=== PATIENT | female | born 1970 | race Two or more races ===

== ENCOUNTER 2017-05-04 12:24 | Outpatient (CLI) | payer OTHER | END 2017-05-04 15:25 | disposition home or self-care (01) | LOC: RAD 501 12:24 | DX: M25.572 Pain in left ankle and joints of left foot (principal) ==

== ENCOUNTER 2017-05-11 11:19 | Outpatient (CLI) | payer OTHER | END 2017-05-11 11:27 | disposition home or self-care (01) | LOC: RAD 501 11:19 | DX: M25.572 Pain in left ankle and joints of left foot (principal); S90.02XA Contusion of left ankle, initial encounter ==

== ENCOUNTER 2017-06-15 09:19 | Outpatient (CLI) | payer OTHER | END 2017-06-15 16:52 | disposition home or self-care (01) | LOC: RAD 501 09:19 | DX: S82.65XA Nondisplaced fracture of lateral malleolus of left fibula, initial encounter for closed fracture (principal) ==

== ENCOUNTER 2018-02-17 09:52 | Outpatient (CLI) | payer OTHER | END 2018-02-17 10:01 | disposition home or self-care (01) | LOC: RAD 09:52 | DX: M54.5 Low back pain (principal) ==

== ENCOUNTER → 2023-02-22 | Outpatient (CLI) | payer OTHER | END | disposition home or self-care (01) | LOC: SONOGRAMA 12:23 | PROVIDERS: ATTEND Family Medicine | DX: E04.8 Other specified nontoxic goiter (principal) ==

== ENCOUNTER 2023-09-15 09:06 | Outpatient (CLI) | payer OTHER | END 2023-09-15 09:15 | disposition home or self-care (01) | LOC: MRI 09:06 | PROVIDERS: ATTEND Family Medicine | DX: R22.1 Localized swelling, mass and lump, neck (principal); D34 Benign neoplasm of thyroid gland | CPT/HCPCS: 70543 ==

== ENCOUNTER 2023-09-20 10:20 | Outpatient (CLI) | payer OTHER | END 2023-09-20 10:33 | disposition home or self-care (01) | LOC: SONOGRAMA 10:20 | PROVIDERS: ATTEND Family Medicine | DX: N93.9 Abnormal uterine and vaginal bleeding, unspecified (principal) ==

== ENCOUNTER 2023-09-23 11:21 | Outpatient (CLI) | payer OTHER | END 2023-09-23 11:36 | disposition home or self-care (01) | LOC: SONOGRAMA 11:21 | PROVIDERS: ATTEND Internal Medicine | DX: E04.1 Nontoxic single thyroid nodule (principal) ==